=== PATIENT | female | born 1970 | race Caucasian/White ===

== ENCOUNTER 2019-08-13 18:42 | Emergency (ER) | payer BC ==
[~2019-08-13] VITALS: Ht 165.1 cm; Wt 61.2 kg
[2019-08-13 19:05] VITALS: BP 104/91
== END 2019-08-13 21:11 | disposition home or self-care (01) ==
LOC: ED 18:42
DX: S52.531A Colles' fracture of right radius, initial encounter for closed fracture (principal); S52.611A Displaced fracture of right ulna styloid process, initial encounter for closed fracture; F17.200 Nicotine dependence, unspecified, uncomplicated; W22.8XXA Striking against or struck by other objects, initial encounter; Y93.01 Activity, walking, marching and hiking; Y92.89 Other specified places as the place of occurrence of the external cause; Y99.8 Other external cause status